=== PATIENT | male | born 1980 | race Caucasian/White ===

== ENCOUNTER 2016-11-25 16:33 | Emergency (ER) | payer SELFPAY ==
[2016-11-25 17:21] VITALS: BP 116/75
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
[2016-11-25 17:56] LABS: BILIRUBIN,URINE NEGATIVE (NEG); GLUCOSE,URINE NEGATIVE (NEG); NITRITE,URINE NEGATIVE (NEG); PROTEIN,URINE NEGATIVE (NEG-TRACE); UROBILINOGEN,URINE 0.2 mg/dL (0.2 mg/dL)
[2016-11-25 18:01] LABS: BARBITURATES NEG (NEG); BENZODIAZEPINES POS (NEG); CANNABINOIDS NEG (NEG); COCAINE NEG (NEG); METHADONE NEG (NEG); OPIATES POS (NEG); PHENCYCLIDINE NEG (NEG)
[2016-11-25 18:05] LABS: ETHANOL, URINE NEG (NEG)
[2016-11-25 18:29] LABS: BACTERIA,URINE 0 /HPF (0-FEW); RBC,URINE 0 /HPF (0-2); WBC,URINE 0 /HPF (0-4)
[2016-11-25] MEDS ORDERED: TRAM50TA PO (18:32)
[2016-11-25] MEDS ORDERED: DICL50TA4 PO (18:32)
== END 2016-11-25 18:39 | disposition home or self-care (01) ==
LOC: ER 16:33
DX: G89.29 Other chronic pain (principal); R51 Headache; F15.10 Other stimulant abuse, uncomplicated; Z98.890 Other specified postprocedural states
CPT/HCPCS: 81001; 99284; G0481